=== PATIENT | male | born 1925 | race Caucasian/White ===

== ENCOUNTER 2016-05-13 09:13 | Emergency (ER) | payer MEDICARE, BC ==
[~2016-05-13] VITALS: Ht 167.6 cm; Wt 75.0 kg
[~2016-05-13 09:13] MED LIST: AMLOPIDINE; ANTIVERT 25MG25 MG PO; ASPIR-LOW81 MG PO; ASPIRIN 81M81 MG/TA2 PO; ASPIRIN E.C. 8181 MG PO; CALCIUM600 MG PO; FISH OIL CONC1000 MG PO; FISH OIL CONCEN1 SG1 PO; FISH OIL CONCEN1 SG2 PO; HCTZ; HCTZ 25MG TAB25 MG PO; INSULIN 50/5100 U/ML IJ; LASIX 20MG TABL20 MG PO; MIRALAX PA17 GM/Dose PO; MULTIPLE VITAMI1 CAP PO; MVI; NOVOLOG 100U100 U/M1 SC; OMNICEF 300MG300 MG PO; PERCOCET 5/321 UDTAB PO; PHENERGAN 25 TA25 MG PO; PRAVACHOL10 MG PO; STATIN
[2016-05-13 09:20] VITALS: TEMP 97.1
[2016-05-13] MEDS ORDERED: NOVOLOG 100U100 U/M1 (09:39)
[2016-05-13 09:43] LABS: BASO % 0.4 % (0.0-2.0); EOS # 0.2 (0.0-0.7); EOS % 2.3 % (0-4.0); GRAN # 3.4 (1.4-6.5); GRAN % 45.7 % (42.2-75.2); HEMATOCRIT 33.8 % (42.0-52.0); HEMOGLOBIN 11.2 g/dl (13.5-18.0); LYMPH # 3.3 (1.2-3.4); LYMPH % 43.8 % (20.0-51.0); MEAN CELL VOLUME 86 fl (80.0-100.0); MEAN CORPUSCULAR HEMOGLOBIN 29 pg (27.0-31.0); MEAN CORPUSCULAR HGB CONC 33 g/dl (33.0-37.0); MEAN PLATELET VOLUME 10.6 fl (7.4-10.4); MONO # 0.6 (0.1-0.6); MONO % 7.7 % (1.7-9.3); PLATELET COUNT 191 K/mm3 (130-400); RED BLOOD COUNT 3.92 M/mm3 (4.20-5.60); REDCELL DISTRIBUTION WIDTH-CV 14.1 % (11.5-14.5); WHITE BLOOD COUNT 7.5 K/mm3 (4.8-10.8)
[2016-05-13 10:02] LABS: BILIRUBIN,TOTAL 0.6 mg/dL (0.0-1.0); CALCIUM 9.3 mg/dL (8.4-10.2); TOTAL PROTEIN 6.9 gm/dL (6.4-8.2)
[2016-05-13 10:13] LABS: TROPONIN-I 0.029 ng/mL (0.000-0.034)
[2016-05-13 10:21] LABS: ADJUSTED CALCIUM 9.8 mg/dL (8.4-10.2); ALBUMIN 3.4 gm/dL (3.5-5.0); CREATININE, serum 0.76 mg/dL (0.66-1.25); POTASSIUM 3.9 mmol/L (3.4-5.0)
[2016-05-13 11:32] LABS: PH 7 (5-8); SQUAMOUS EPITHELIAL 0-2 /hpf; URINE APPEARANCE Clear; URINE BACTERIA None Seen /hpf; URINE BILIRUBIN Negative (NEGATIVE); URINE BLOOD Negative (NEGATIVE); URINE COLOR Yellow; URINE GLUCOSE 2+ (NEGATIVE); URINE KETONE Negative (NEGATIVE); URINE RBC None Seen /hpf; URINE UROBILINOGEN Negative (NEGATIVE); URINE WBC 0-2 /hpf
[2016-05-13 12:34] VITALS: BP 136/62; PULSE 88
== END 2016-05-13 12:44 | disposition home or self-care (01) ==
LOC: COL.ER 09:13
PROVIDERS: Emergency Medicine
DX: M25.511 Pain in right shoulder (principal); E10.9 Type 1 diabetes mellitus without complications; Z79.4 Long term (current) use of insulin; R53.81 Other malaise; K86.89 Other specified diseases of pancreas; I48.91 Unspecified atrial fibrillation; Z96.41 Presence of insulin pump (external) (internal)
CPT/HCPCS: J1885; J7040; Q9967